=== PATIENT | male | born 1975 | race Caucasian/White ===

== ENCOUNTER 2016-10-20 15:11 | Inpatient (IN) | payer MEDICAID, OTHER ==
[~2016-10-20] VITALS: Ht 172.7 cm; Wt 86.4 kg
[~2016-10-20 15:11] MED LIST: ADV500 IH; ALBU8HFA IH; ARIP10TA14 PO; ATOR10TA84 PO; BUDE10.2 IH; DSS100 PO; GABA-531 PO; HYDR-309 PO; LORA1TAB3 PO; QUET300T2 PO; TOPI25 PO; TRAZ-147 PO; VENL-67 PO; VITAD1000 PO
[2016-10-20] MEDS ORDERED: HALOPERIDOL 5 MG TABLET PO PRN (17:15)
[2016-10-20] MEDS ORDERED: ZOLPIDEM TARTRATE 10 MG TABLET PO PRN (17:15)
[2016-10-20 17:44] VITALS: BP 135/61
[2016-10-20] MEDS ORDERED: ALBUTEROL SULFATE HFA 90 MCG/PUFF 8 GM INHALER IH PRN (20:30)
[2016-10-21 06:22] VITALS: BP 110/66
[2016-10-21] MEDS ORDERED: CloNIDine HCL 0.1 MG TABLET PO PRN (08:00)
[2016-10-21] MEDS ORDERED: BENZOCAINE/MENTHOL LOZENGE MM PRN (08:00)
[2016-10-21] MEDS ORDERED: ACETAMINOPHEN 325 MG TABLET PO PRN (08:00)
[2016-10-21] MEDS ORDERED: PETROLATUM,WHITE 71 GM JELLY TP PRN (08:00)
[2016-10-21] MEDS ORDERED: BACITRACIN 28.4 GM OINTMENT TP PRN (08:00)
[2016-10-21] MEDS ORDERED: IBUPROFEN 600 MG TABLET PO PRN (08:00)
[2016-10-21] MEDS ORDERED: ONDANSETRON HCL 4 MG TABLET PO PRN (08:00)
[2016-10-21] MEDS ORDERED: LOPERAMIDE HCL 2 MG CAPSULE PO PRN (08:00)
[2016-10-21] MEDS ORDERED: MAG HYDROX/AL HYDROX/SIMETH ES 30 ML SUSPENSION UDCUP PO PRN (08:00)
[2016-10-21] MEDS ORDERED: MAGNESIUM HYDROXIDE SUSPENSION 30 ML UDCUP PO PRN (08:00)
[2016-10-21 08:03] VITALS: BP 136/81
[2016-10-21] MEDS: OMEPRAZOLE 20 MG CAPSULE PO SCH (08:22)
[2016-10-21] MEDS: DOCUSATE SODIUM 100 MG CAPSULE PO SCH (08:22)
[2016-10-21] MEDS: NICOTINE 21 MG/24 HOUR PATCH TD SCH (08:22)
[2016-10-21] MEDS: CHOLECALCIFEROL (VIT D3) 1,000 UNITS TABLET PO SCH (08:27)
[2016-10-21 08:37] LABS: BASOPHILS # (AUTO) 0.03 K/uL (0.00-0.20); BASOPHILS % (AUTO) 0.4 % (0.0-2.0); EOSINOPHILS # (AUTO) 0.12 K/uL (0.00-0.70); EOSINOPHILS % (AUTO) 1.78 % (1.0-6.0); HEMATOCRIT 38.6 % (41-53); HEMOGLOBIN 12.9 g/dL (13.5-17.5); LYMPHOCYTES # (AUTO) 2.8 K/uL (1.0-4.8); LYMPHOCYTES % (AUTO) 43.5 % (22.0-44.0); MEAN CORPUSCULAR HEMOGLOBIN 30.6 pg (26.0-34.0); MEAN CORPUSCULAR HGB CONC 33.4 G/dL (31.0-37.0); MEAN CORPUSCULAR VOLUME 92 fL (80-100); MONOCYTES # (AUTO) 0.4 K/uL (0.1-1.0); MONOCYTES % (AUTO) 6.4 % (2.0-9.0); NEUTROPHILS # (AUTO) 3.1 K/uL (1.8-7.7); NEUTROPHILS % (AUTO) 47.8 % (40.0-70.0); PLATELET COUNT (AUTO) 292 K/uL (150-450); RED BLOOD CELL COUNT(AUTO) 4.22 MIL/uL (4.50-5.90); RED CELL DISTRIBUTION WIDTH 14.6 % (11.5-14.5); WHITE BLOOD COUNT (AUTO) 6.5 K/uL (4.5-11.0)
[2016-10-21 08:51] LABS: ALANINE AMINOTRANSFERASE 34 U/L (12-78); ALBUMIN 3.1 g/dL (3.4-5.0); ANION GAP 7 mmol/L (8-16); ASPARTATE AMINOTRANSFERASE 26 U/L (15-37); BILIRUBIN,TOTAL 0.3 mg/dL (0.1-1.0); CALCIUM, TOTAL 8.6 mg/dL (8.8-10.5); CARBON DIOXIDE 29 mmol/L (22-29); CHLORIDE 107 mmol/L (98-107); CHOL/HDL RATIO 3.7 (4.2-7.3); CREATININE 0.78 mg/dL (0.60-1.30); GLOMERULAR FILTR. RATE CALC > 60 mL/min (>60); POTASSIUM 4.1 mmol/L (3.5-5.1); SODIUM SERUM 143 mmol/L (136-145); THYROID STIMULATING HORMONE 0.94 uIU/mL (0.36-3.74); TOTAL PROTEIN, SERUM 5.8 g/dL (6.4-8.2); UREA NITROGEN, BLOOD 11 mg/dL (7-18)
[2016-10-21 09:07] LABS: HEMOGLOBIN A1C 5.8 % (4.5-6.2)
[2016-10-21 16:55] VITALS: BP 125/89
[2016-10-21] MEDS: QUEtiapine FUMARATE 200 MG TABLET PO SCH (20:24)
[2016-10-22 05:00] VITALS: BP 109/71
[2016-10-22] MEDS: NICOTINE 21 MG/24 HOUR PATCH TD SCH (08:16)
[2016-10-22] MEDS: VENLAFAXINE HCL 75 MG ER CAPSULE PO SCH (08:16)
[2016-10-22] MEDS: CHOLECALCIFEROL (VIT D3) 1,000 UNITS TABLET PO SCH (08:16)
[2016-10-22] MEDS: OMEPRAZOLE 20 MG CAPSULE PO SCH (08:16)
[2016-10-22] MEDS: DOCUSATE SODIUM 100 MG CAPSULE PO SCH (08:16)
[2016-10-22 08:51] VITALS: BP 119/75
[2016-10-22 16:09] VITALS: BP 106/65
[2016-10-22] MEDS: QUEtiapine FUMARATE 200 MG TABLET PO SCH (20:44)
[2016-10-23 00:10] VITALS: BP 111/69
[2016-10-23] MEDS: FERROUS SULFATE 325 MG EC TABLET PO SCH ×2 (06:34→16:13)
[2016-10-23] MEDS: DOCUSATE SODIUM 100 MG CAPSULE PO SCH (08:27)
[2016-10-23] MEDS: OMEPRAZOLE 20 MG CAPSULE PO SCH (08:28)
[2016-10-23] MEDS: VENLAFAXINE HCL 75 MG ER CAPSULE PO SCH (08:28)
[2016-10-23] MEDS: NICOTINE 21 MG/24 HOUR PATCH TD SCH (08:28)
[2016-10-23] MEDS: CHOLECALCIFEROL (VIT D3) 1,000 UNITS TABLET PO SCH (08:28)
[2016-10-23 08:36] VITALS: BP 128/78
[2016-10-23 16:00] VITALS: BP 108/65
[2016-10-23] MEDS: QUEtiapine FUMARATE 200 MG TABLET PO SCH (20:48)
[2016-10-24] MEDS: FERROUS SULFATE 325 MG EC TABLET PO SCH ×2 (07:19→16:45)
[2016-10-24] MEDS: NICOTINE 21 MG/24 HOUR PATCH TD SCH (08:34)
[2016-10-24] MEDS: DOCUSATE SODIUM 100 MG CAPSULE PO SCH (08:34)
[2016-10-24] MEDS: OMEPRAZOLE 20 MG CAPSULE PO SCH (08:34)
[2016-10-24] MEDS: VENLAFAXINE HCL 75 MG ER CAPSULE PO SCH (08:34)
[2016-10-24] MEDS: CHOLECALCIFEROL (VIT D3) 1,000 UNITS TABLET PO SCH (08:34)
[2016-10-24 08:49] VITALS: BP 105/65
[2016-10-24 16:00] VITALS: BP 114/68
[2016-10-24] MEDS: QUEtiapine FUMARATE 200 MG TABLET PO SCH (20:03)
[2016-10-25 00:02] VITALS: BP 107/66
[2016-10-25] MEDS: FERROUS SULFATE 325 MG EC TABLET PO SCH ×2 (06:24→17:04)
[2016-10-25 08:20] VITALS: BP 102/70
[2016-10-25] MEDS: CHOLECALCIFEROL (VIT D3) 1,000 UNITS TABLET PO SCH (08:44)
[2016-10-25] MEDS: OMEPRAZOLE 20 MG CAPSULE PO SCH (08:44)
[2016-10-25] MEDS: NICOTINE 21 MG/24 HOUR PATCH TD SCH (08:44)
[2016-10-25] MEDS: VENLAFAXINE HCL 75 MG ER CAPSULE PO SCH (08:44)
[2016-10-25] MEDS: DOCUSATE SODIUM 100 MG CAPSULE PO SCH (08:44)
[2016-10-25 16:01] VITALS: BP 113/77
[2016-10-25] MEDS: QUEtiapine FUMARATE 200 MG TABLET PO SCH (20:10)
[2016-10-25] MEDS: LORazepam 2 MG TABLET PO PRN (20:10)
[2016-10-26 00:46] VITALS: BP 106/64
[2016-10-26] MEDS: FERROUS SULFATE 325 MG EC TABLET PO SCH ×2 (06:11→16:57)
[2016-10-26 08:12] VITALS: BP 93/52
[2016-10-26] MEDS: OMEPRAZOLE 20 MG CAPSULE PO SCH (09:44)
[2016-10-26] MEDS: CHOLECALCIFEROL (VIT D3) 1,000 UNITS TABLET PO SCH (09:44)
[2016-10-26] MEDS: NICOTINE 21 MG/24 HOUR PATCH TD SCH (09:44)
[2016-10-26] MEDS: VENLAFAXINE HCL 75 MG ER CAPSULE PO SCH (09:44)
[2016-10-26] MEDS: DOCUSATE SODIUM 100 MG CAPSULE PO SCH (09:44)
[2016-10-26] MEDS: LORazepam 2 MG TABLET PO PRN ×2 (14:42→20:47)
[2016-10-26 16:05] VITALS: BP 110/72
[2016-10-26] MEDS: QUEtiapine FUMARATE 200 MG TABLET PO SCH (20:43)
[2016-10-27 00:39] VITALS: BP 104/64
[2016-10-27] MEDS: FERROUS SULFATE 325 MG EC TABLET PO SCH ×2 (06:43→17:24)
[2016-10-27 08:23] VITALS: BP 111/68
[2016-10-27] MEDS: VENLAFAXINE HCL 75 MG ER CAPSULE PO SCH (09:19)
[2016-10-27] MEDS: NICOTINE 21 MG/24 HOUR PATCH TD SCH (09:20)
[2016-10-27] MEDS: DOCUSATE SODIUM 100 MG CAPSULE PO SCH (09:20)
[2016-10-27] MEDS: OMEPRAZOLE 20 MG CAPSULE PO SCH (09:20)
[2016-10-27] MEDS: CHOLECALCIFEROL (VIT D3) 1,000 UNITS TABLET PO SCH (09:20)
[2016-10-27] MEDS: LORazepam 2 MG TABLET PO PRN ×2 (14:46→21:16)
[2016-10-27 16:00] VITALS: BP 108/64
[2016-10-27] MEDS: QUEtiapine FUMARATE 200 MG TABLET PO SCH (20:37)
[2016-10-28 05:17] VITALS: BP 101/60
[2016-10-28] MEDS: FERROUS SULFATE 325 MG EC TABLET PO SCH (06:36)
[2016-10-28 08:16] VITALS: BP 100/62
[2016-10-28] MEDS: NICOTINE 21 MG/24 HOUR PATCH TD SCH (08:35)
[2016-10-28] MEDS: CHOLECALCIFEROL (VIT D3) 1,000 UNITS TABLET PO SCH (08:35)
[2016-10-28] MEDS: DOCUSATE SODIUM 100 MG CAPSULE PO SCH (08:35)
[2016-10-28] MEDS: VENLAFAXINE HCL 75 MG ER CAPSULE PO SCH (08:35)
[2016-10-28] MEDS: OMEPRAZOLE 20 MG CAPSULE PO SCH (08:35)
[2016-10-28] MEDS ORDERED: QUET200T PO (12:35)
[2016-10-28] MEDS ORDERED: OMEP20 PO (12:36)
[2016-10-28] MEDS ORDERED: FERS325 PO (12:36)
== END 2016-10-28 15:05 | disposition home or self-care (01) | DRG 750 ==
LOC: B2S 17:05 → EDSTATUS 17:07
DX: F20.0 Paranoid schizophrenia (principal); E55.9 Vitamin D deficiency, unspecified; R45.851 Suicidal ideations; F12.90 Cannabis use, unspecified, uncomplicated; F15.90 Other stimulant use, unspecified, uncomplicated; F17.210 Nicotine dependence, cigarettes, uncomplicated; K59.00 Constipation, unspecified; K21.9 Gastro-esophageal reflux disease without esophagitis; J44.9 Chronic obstructive pulmonary disease, unspecified; G89.29 Other chronic pain; D64.9 Anemia, unspecified; E58 Dietary calcium deficiency; M54.5 Low back pain; Z79.51 Long term (current) use of inhaled steroids; Z59.0 Homelessness; Z79.899 Other long term (current) drug therapy; Z91.5 Personal history of self-harm; Z88.8 Allergy status to other drugs, medicaments and biological substances; Z71.6 Tobacco abuse counseling; Z71.51 Drug abuse counseling and surveillance of drug abuser
CPT/HCPCS: 82306; 83036; 84439; 84443

== ENCOUNTER 2016-11-05 09:53 | Inpatient (IN) | payer MEDICAID, OTHER ==
[~2016-11-05] VITALS: Ht 172.7 cm; Wt 84.2 kg
[~2016-11-05 09:53] MED LIST changes: -ADV500 IH; -ALBU8HFA IH; -ARIP10TA14 PO; -ATOR10TA84 PO; -BUDE10.2 IH; +FERR-89 PO; -GABA-531 PO; -HYDR-309 PO; -LORA1TAB3 PO; +OMEP20 PO; +QUET200T PO; -QUET300T2 PO; -TOPI25 PO; -TRAZ-147 PO; -VITAD1000 PO
[2016-11-05] MEDS ORDERED: ARIP2 PO (10:04)
[2016-11-05] MEDS ORDERED: LORA0.5T2 PO (10:04)
[2016-11-05] MEDS ORDERED: ADV100 IH (10:04)
[2016-11-05] MEDS ORDERED: SYMB8060 IH (10:04)
[2016-11-05] MEDS ORDERED: ALBU8HFA IH (10:04)
[2016-11-05] MEDS ORDERED: TRAZ-144 PO (10:04)
[2016-11-05 10:30] LABS: BASOPHILS # (AUTO) 0.06 K/uL (0.00-0.20); BASOPHILS % (AUTO) 0.8 % (0.0-2.0); EOSINOPHILS # (AUTO) 0.06 K/uL (0.00-0.70); EOSINOPHILS % (AUTO) 0.87 % (1.0-6.0); HEMOGLOBIN 13.5 g/dL (13.5-17.5); LYMPHOCYTES # (AUTO) 2.3 K/uL (1.0-4.8); LYMPHOCYTES % (AUTO) 33.1 % (22.0-44.0); MEAN CORPUSCULAR HEMOGLOBIN 30.7 pg (26.0-34.0); MEAN CORPUSCULAR VOLUME 93 fL (80-100); MONOCYTES # (AUTO) 0.4 K/uL (0.1-1.0); MONOCYTES % (AUTO) 5.9 % (2.0-9.0); NEUTROPHILS # (AUTO) 4.1 K/uL (1.8-7.7); NEUTROPHILS % (AUTO) 59.3 % (40.0-70.0); PLATELET COUNT (AUTO) 321 K/uL (150-450); RED BLOOD CELL COUNT(AUTO) 4.41 MIL/uL (4.50-5.90); RED CELL DISTRIBUTION WIDTH 14.7 % (11.5-14.5); WHITE BLOOD COUNT (AUTO) 6.9 K/uL (4.5-11.0)
[2016-11-05] MEDS ORDERED: QUEtiapine FUMARATE 100 MG TABLET PO ONE (10:30)
[2016-11-05 10:39] LABS: ANION GAP 10 mmol/L (8-16); CALCIUM, TOTAL 8.8 mg/dL (8.8-10.5); CARBON DIOXIDE 28 mmol/L (22-29); CHLORIDE 101 mmol/L (98-107); CREATININE 0.86 mg/dL (0.60-1.30); GLOMERULAR FILTR. RATE CALC > 60 mL/min (>60); POTASSIUM 3.1 mmol/L (3.5-5.1); SODIUM SERUM 139 mmol/L (136-145); UREA NITROGEN, BLOOD 7 mg/dL (7-18)
[2016-11-05 10:46] LABS: ALANINE AMINOTRANSFERASE 46 U/L (12-78); ALBUMIN 3.9 g/dL (3.4-5.0); ASPARTATE AMINOTRANSFERASE 32 U/L (15-37); BILIRUBIN,TOTAL 0.4 mg/dL (0.1-1.0); TOTAL PROTEIN, SERUM 7.2 g/dL (6.4-8.2)
[2016-11-05] MEDS ORDERED: ZOLPIDEM TARTRATE 10 MG TABLET PO PRN (12:15)
[2016-11-05] MEDS ORDERED: POTASSIUM CHLORIDE 10% 40 MEQ/30 ML LIQUID UDCUP PO ONE (15:45)
[2016-11-05 16:30] VITALS: BP 121/76
[2016-11-05] MEDS: QUEtiapine FUMARATE 200 MG TABLET PO SCH (21:00)
[2016-11-06 08:05] VITALS: BP 115/70
[2016-11-06 10:08] LABS: CHOL/HDL RATIO 3.2 (4.2-7.3)
[2016-11-06] MEDS: VENLAFAXINE HCL 75 MG ER CAPSULE PO SCH (10:40)
[2016-11-06 16:01] VITALS: BP 127/88
[2016-11-06] MEDS: QUEtiapine FUMARATE 200 MG TABLET PO SCH (21:04)
[2016-11-07] MEDS ORDERED: ACETAMINOPHEN 325 MG TABLET PO PRN (07:15)
[2016-11-07] MEDS ORDERED: BENZOCAINE/MENTHOL LOZENGE [8 LOZENGES/PACKET] MM PRN (07:15)
[2016-11-07] MEDS ORDERED: MAG HYDROX/AL HYDROX/SIMETH ES 30 ML SUSPENSION UDCUP PO PRN (07:15)
[2016-11-07] MEDS ORDERED: LOPERAMIDE HCL 2 MG CAPSULE PO PRN (07:15)
[2016-11-07] MEDS ORDERED: ONDANSETRON HCL 4 MG TABLET PO PRN (07:15)
[2016-11-07] MEDS ORDERED: ALBUTEROL SULFATE HFA 90 MCG/PUFF 8 GM INHALER IH PRN (07:15)
[2016-11-07] MEDS ORDERED: PETROLATUM,WHITE 71 GM JELLY TP PRN (07:15)
[2016-11-07] MEDS ORDERED: IBUPROFEN 600 MG TABLET PO PRN (07:15)
[2016-11-07] MEDS ORDERED: BACITRACIN 28.4 GM OINTMENT TP PRN (07:15)
[2016-11-07] MEDS ORDERED: CloNIDine HCL 0.1 MG TABLET PO PRN (07:15)
[2016-11-07] MEDS ORDERED: MAGNESIUM HYDROXIDE SUSPENSION 30 ML UDCUP PO PRN (07:15)
[2016-11-07 08:05] VITALS: BP 94/55
[2016-11-07] MEDS: VENLAFAXINE HCL 75 MG ER CAPSULE PO SCH (08:36)
[2016-11-07 16:35] VITALS: BP 109/79
[2016-11-07] MEDS: QUEtiapine FUMARATE 200 MG TABLET PO SCH (20:26)
[2016-11-08] MEDS: VENLAFAXINE HCL 75 MG ER CAPSULE PO SCH (08:35)
[2016-11-08 08:49] VITALS: BP 105/67
[2016-11-08] MEDS: LORazepam 2 MG TABLET PO PRN (12:16)
[2016-11-08 16:36] VITALS: BP 125/69
[2016-11-08] MEDS: QUEtiapine FUMARATE 200 MG TABLET PO SCH (21:36)
[2016-11-09] MEDS: VENLAFAXINE HCL 75 MG ER CAPSULE PO SCH (08:43)
[2016-11-09 09:04] VITALS: BP 111/71
[2016-11-09] MEDS: LORazepam 2 MG TABLET PO PRN ×2 (11:23→18:22)
[2016-11-09 11:25] VITALS: BP 115/75
[2016-11-09 16:45] VITALS: BP 102/62
[2016-11-09] MEDS: QUEtiapine FUMARATE 200 MG TABLET PO SCH (20:46)
[2016-11-10 08:00] VITALS: BP 118/78
[2016-11-10] MEDS: VENLAFAXINE HCL 75 MG ER CAPSULE PO SCH (10:07)
[2016-11-10] MEDS: LORazepam 2 MG TABLET PO PRN (10:47)
[2016-11-10] MEDS: HALOPERIDOL 5 MG TABLET PO PRN (10:47)
[2016-11-10 16:43] VITALS: BP 115/86
[2016-11-10] MEDS: QUEtiapine FUMARATE 200 MG TABLET PO SCH (20:04)
[2016-11-11] MEDS: LORazepam 2 MG TABLET PO PRN ×2 (01:24→12:06)
[2016-11-11 01:47] VITALS: BP 106/76
[2016-11-11] MEDS: VENLAFAXINE HCL 75 MG ER CAPSULE PO SCH (10:19)
[2016-11-11 10:40] VITALS: BP 100/70
[2016-11-11] MEDS ORDERED: VENL-67 PO (10:40)
[2016-11-11] MEDS: HALOPERIDOL 5 MG TABLET PO PRN (12:06)
[2016-11-11] MEDS: QUEtiapine FUMARATE 200 MG TABLET PO SCH (20:37)
== END 2016-11-11 21:50 | disposition home or self-care (01) | DRG 750 ==
LOC: EEVIPCON 09:56 → EMS 09:56 → 3EI 14:36
DX: F20.0 Paranoid schizophrenia (principal); R45.851 Suicidal ideations; E55.9 Vitamin D deficiency, unspecified; J44.9 Chronic obstructive pulmonary disease, unspecified; K21.9 Gastro-esophageal reflux disease without esophagitis; F19.10 Other psychoactive substance abuse, uncomplicated; F17.200 Nicotine dependence, unspecified, uncomplicated; E87.6 Hypokalemia; F15.10 Other stimulant abuse, uncomplicated; F31.9 Bipolar disorder, unspecified; F12.10 Cannabis abuse, uncomplicated; K59.00 Constipation, unspecified; G89.29 Other chronic pain; Z71.51 Drug abuse counseling and surveillance of drug abuser; Z71.6 Tobacco abuse counseling; Z59.0 Homelessness; Z79.899 Other long term (current) drug therapy; Z88.8 Allergy status to other drugs, medicaments and biological substances
CPT/HCPCS: 84132; 87081; 99285; G0480